=== PATIENT | male | born 1945 | race Caucasian/White ===

== ENCOUNTER 2018-11-25 01:00 | Emergency (ER) | payer MEDICARE, OTHER ==
[~2018-11-25] VITALS: Ht 180.3 cm; Wt 117.5 kg
[~2018-11-25 01:00] MED LIST: COUMADIN10 MG PO; DILTIAZEM 24HR240 M3 PO; MULTIVITAMINS1 EAC7 PO; VITAMIN C500 M1 PO; WARFARIN SODIUM1 MG PO; ZESTRIL5 MG PO
[2018-11-25] MEDS ORDERED: CEPHALEXIN500 MG PO (02:54)
[2018-11-25] MEDS ORDERED: PYRIDIUM200 MG PO (02:54)
== END 2018-11-25 03:23 | disposition home or self-care (01) ==
LOC: ED 01:00
DX: N39.0 Urinary tract infection, site not specified (principal); I10 Essential (primary) hypertension; I48.91 Unspecified atrial fibrillation; Z87.01 Personal history of pneumonia (recurrent); Z79.899 Other long term (current) drug therapy
CPT/HCPCS: 81001; 87077; 87088; 87186; 99283

== ENCOUNTER 2020-07-20 17:34 | Emergency (ER) | payer MEDICARE, OTHER ==
[~2020-07-20] VITALS: Ht 180.3 cm; Wt 119.3 kg
[~2020-07-20 17:34] MED LIST changes: +CEPHALEXIN500 MG PO; +PYRIDIUM200 MG PO
[2020-07-20] MEDS ORDERED: HYDROCODON-ACE1 EA10 PO (21:22)
[2020-07-20] MEDS ORDERED: OMEPRAZOLE20 MG PO (21:22)
--- NOTE | 2020-07-21 15:10 | EKG ---
[facility] [address] [facility] [place] [address] Signed Atrial fibrillation Nonspecific T wave abnormality Abnormal ECG No previous ECGs available Confirmed by JOVANI HUFFMAN MD ([id number]) on 07/21/2020 3:10:25 PM Electronically Signed By: JOVANI HUFFMAN MD 07/21/20 1510 PATIENT NAME: CASE COBOS Electrocardiogram DATE OF : 41 PHYSICIAN: JOVANI HUFFMAN MD REPORT #: [id number] REPORT IS CONFIDENTIAL AND NOT TO BE RELEASED WITHOUT AUTHORIZATION
[2020-09-16] MEDS ORDERED: LISINOPRIL40 MG PO (10:40)
== END 2020-07-20 21:43 | disposition home or self-care (01) ==
LOC: ED 17:34
DX: K30 Functional dyspepsia (principal); I48.91 Unspecified atrial fibrillation; I10 Essential (primary) hypertension; Z79.899 Other long term (current) drug therapy; Z79.01 Long term (current) use of anticoagulants
CPT/HCPCS: 71045; 76705; 80053; 83690; 83735; 84484; 85025; 85610; 93005; 93010; 96374; 96375; 99285-25; C9113; J1170; J2405

== ENCOUNTER 2022-09-20 08:45 | Day surgery (SDC) | payer MEDICARE, OTHER ==
[2022-09-07 10:09] VITALS: BP 120/73
[~2022-09-20] VITALS: Ht 180.3 cm; Wt 120.5 kg
[~2022-09-20 08:45] MED LIST changes: -COUMADIN10 MG PO; +GLUCOSAMINE DA1 EACH PO; +HYDROCODON-ACE1 EA10 PO; +K-TAB ER20 MEQ PO; +LEVOFLOXACIN500 MG PO; +LISINOPRIL40 MG PO; +OMEPRAZOLE20 MG PO; +TAMSULOSIN HCL0.4 MG PO; +WARFARIN SODIUM10 MG PO
[2022-09-20 09:10] VITALS: BP 154/94
[2022-09-20] MEDS ORDERED: TORSEMIDE10 MG PO (09:17)
[2022-09-20] MEDS ORDERED: OXYCODONE HCL5 MG PO (12:54)
[2022-09-20] MEDS ORDERED: GABAPENTIN300 MG PO (12:55)
[2022-09-20] MEDS ORDERED: SENNA LAX8.6 MG PO (12:55)
[2022-09-20 14:03] VITALS: BP 147/78
--- NOTE | 2022-09-20 14:15 | OR ---
[facility] [address] [facility] [place] [address] Signed DATE OF OPERATION: 09/20/2022 SURGEON: Cinthya Keyes MD PREOPERATIVE DIAGNOSIS: DJD, left knee. POSTOPERATIVE DIAGNOSIS: DJD, left knee. PROCEDURE PERFORMED: Left total knee arthroplasty with Emeka. PHYSICIAN LOCUMS URGENT CARE: Breann Gillespie PA-C. ANESTHESIA: Spinal. BLOOD LOSS: 200 mL. TOURNIQUET TIME: Zero. IMPLANTS: [place] Triathlon size 8 femur, 7 tibia, 9 mm polyethylene and 35 mm patella. BRIEF HISTORY: Case is a 76-year-old male with pain in his knee. He had significant arthritis. Nonoperative treatment was then successful and risks and benefits of operative treatment were discussed with him and he elected to proceed. DESCRIPTION OF PROCEDURE: Once consent was obtained, he was taken to the operating room. After adequate anesthesia, he was placed on the operating room table. All downside pressure points were well padded and hip bump was placed. The leg was prepped and draped in a standard sterile fashion. It was noted he had about a 15 degree flexion contracture preoperatively. The knee was then approached through a standard anterior midline incision. We did not place the tourniquet up. The midvastus arthrotomy was performed Electronically Signed By: CINTHYA KEYES MD 09/20/22 1415 PATIENT NAME: CASE COBOS OPERATIVE REPORT DATE OF : 41 REPORT #: [id number] PHYSICIAN: CINTHYA KEYES MD PCP: AMA BUSTILLO MD REPORT IS CONFIDENTIAL AND NOT TO BE RELEASED WITHOUT AUTHORIZATION [facility] [address] [place], [place] [address] Signed and the MCL was elevated as a sleeve around to the posteromedial corner. The infrapatellar fat pad was excised. Anterior horns of the menisci were incised. The ACL was released and the PCL was found to be intact. The navigation computer arrays were placed in the medial femoral condyle and proximal tibia. The leg was then registered with the computer as was the fine anatomic points of the knee. The varus and valgus testing showed minimal ligamentous balancing. We adjusted this slightly. Once this was completed, the 4 straight cuts and 2 angle cuts were made with care taken to protect the patellar tendon and MCL. The bony remnants were removed as were any osteophytes. The posterior osteophytes were removed off the femur and posterior release was performed. The trials were then positioned. The knee went from 0 to about 130 degrees of flexion with good stability. The patella was noted to track well, but did want to sublux a little laterally. The patella was cut sized and drilled for a 35 mm patella. The distal femur was drilled and the proximal tibia was finished using the keel punch and drill. His bone quality was good, so we elected to go with a non-cemented prosthesis. The trials were removed. The tibial component was impacted until it was flushed. The polyethylene was snapped into position, the femur was impacted. The knee was extended and axially loaded and the patella was clamped into position. The clamp was removed. Again, there was a slight hint of a subluxation, so we did a lateral release which centered the patella quite nicely. The knee was then copiously irrigated with Surgiphor followed by normal saline. The periarticular soft tissues were injected with 100 mL of ropivacaine and Toradol mixture. The On-Q pain pump was percutaneously placed into the adductor canal from the suprapatellar pouch. The arthrotomy was closed using combination of #2 FiberWire and #2 Stratafix, subcutaneous tissue with 0 Stratafix and the skin with alli. The wound was dressed with Aquacel Ag dressing, ABD, and Leonardo wrap. He tolerated the procedure well. All sponge, needle, and instrument counts were correct. Cinthya Keyes MD BA/MODL /[id number] Electronically Signed By: CINTHYA KEYES MD 09/20/22 1415 PATIENT NAME: CASE COBOS OPERATIVE REPORT DATE OF : 41 REPORT #: [id number] PHYSICIAN: CINTHYA KEYES MD PCP: AMA BUSTILLO MD REPORT IS CONFIDENTIAL AND NOT TO BE RELEASED WITHOUT AUTHORIZATION [facility] [address] [place] [id number] Signed Copies: ~ Electronically Signed By: CINTHYA KEYES MD 09/20/22 1415 PATIENT NAME: PAPITOCASE FIGUEROA OPERATIVE REPORT DATE OF : 41 REPORT #: [id number] PHYSICIAN: CINTHYA KEYES MD PCP: AMA BUSTILLO MD REPORT IS CONFIDENTIAL AND NOT TO BE RELEASED WITHOUT AUTHORIZATION
--- NOTE | 2022-09-20 14:21 | NUR ---
1350- PT ARRIVES FROM PACU ALERT AND ORIENTED. PT REPORTS PAIN A 6/10, DENIES NAUSEA. PT PROVIDED PUDDING, CRACKERS, AND WATER PER HIS REQUEST. ON Q PUMP INFUSING AT 6 ML/ HR. CRYOCUFF IN PLACE WITH BARRIER. BED IN THE LOWEST POSITION, BED RAILS UP X2, CALL LIGHT PROVIDED, AND PT'S AT THE BEDSIDE. 1421- LUNCH TRAY ORDERED.
--- NOTE | 2022-09-20 14:29 | NUR ---
09/20/22 1429 Monique Edwards 1250 PT ARRIVED IN PACU AWAKE AND MOVING AROUND IN BED. CRYO CUFF PLACED TO L KNEE. 1300 REPOSITIONED PT IN BED. 1308 C/O L KNEE PAIN 09/20. FENTANYL 50MCG GIVEN IVP. 1316 NO CHANGE IN PAIN LEVEL. FENTANYL 50MCG GIVEN IVP. 1330 PT SIPPING ON WATER AND REQUESTING TO SEE HIS . 1340 TO DS. REPORT GIVEN TO RN. AT BEDSIDE.
--- NOTE | 2022-09-20 14:38 | NUR ---
PT SITTING UP IN BED EATING A SANDWICH AND SOUP. PT PROVIDED MORE ICE WATER. TOLERATING WELL. PT ABLE TO URINATE 75 ML OF CONCENTRATED URINE. PT STATES AFTER HE EATS HE THINKS HE WILL BE READY TO WORK WITH PHYSICAL THERAPY.
[2022-09-20 15:04] VITALS: BP 137/84
--- NOTE | 2022-09-20 15:07 | NUR ---
PT ATE HIS ENTIRE LUNCH. PT TAUGHT HOW TO USE HIS INCENTIVE SPIROMETER. PT ABLE TO REACH 1500 A COUPLE OF TIMES. PT REPORTS HIS PAIN IS TOLERABLE RATING IT A 3/10, DENIES NAUSEA. PT STATES HE IS READY TO WORK WITH PHYSICAL THERAPY.
--- NOTE | 2022-09-20 15:23 | NUR ---
PHYSICAL THERAPY IN THE ROOM.
[2022-09-20 16:26] VITALS: BP 135/69
--- NOTE | 2022-09-20 16:31 | NUR ---
1555- PT RETURED FROM PHYSICAL THERAPY AND HAS BLEEDING ON THE ISABELLA WRAP. UNDER THE DRESSING THE AQUACEL IS COMPLETELY SATURATED AND THE ABD PADS HAVE A MODERATE AMOUNT OF DRAINAGE ON THEM. DR. CANALES CALLED AND ORDERED TO HAVE HIS DRESSING CHANGED. PT DID PASS PHYSICAL THERAPY. 161- 12 INCH AQUACEL, 3 ABD PADS, AND 6 INCH ISABELLA WRAP APPLIED PER DR. CANALES TELEPHONE ORDER. PT REPORTS HIS LEFT KNEE PAIN IS A 2/10, DENIES ANY DIZZINESS OR NAUSEA. PT STATES, "I FEEL GREAT. WHEN DO I GET TO GO HOME?" PT UPDATED ON PLAN OF CARE.
[2022-09-20 17:01] VITALS: BP 123/87
--- NOTE | 2022-09-20 17:08 | NUR ---
ON- Q PUMP TURNED DOWN TO 4 ML/HR PER DR. CANALES TELEPHONE ORDER. PT AND PT'S NOTIFIED THAT THE PT IS TO START WARFARIN AGAIN TOMORROW. BOTH PARTIES STATE UNDERSTANDING.
--- NOTE | 2022-09-20 17:15 | NUR ---
PT DRESSING HIMSELF WITH HIS AT THE BEDSIDE. PT DENIES ANY DIZZINESS OR NAUSEA.
--- NOTE | 2022-09-20 17:37 | NUR ---
1722- PT DRESSED HIMSELF. TOLERATED WELL. DC INSTRUCTIONS PROVIDED TO PT AND PT'S . ALL QUESTIONS ANSWERED. CRYOCUFF PACKED UP AND INSTRUCTED ON HOW TO FILL AND USE. BOTH PARTIES STATE UNDERSTANDING. PT'S DRESSING HAS MINIMAL DRAINAGE. EDUCATED TO CALL DR. CANALES AFTER HOURS NUMBER IF THE DRESSING BECOMES SATURATED AGAIN. PT ABLE TO AMBULATE WITH WALKER TO THE WHEELCHAIR AND IS TAKEN OUT TO THE CAR TO MEET HIS .
== END 2022-09-20 17:25 | disposition home or self-care (01) ==
LOC: DS 08:45
PROVIDERS: ATTEND Specialist
PROC: 3E0T3BZ Introduction of Anesthetic Agent into Peripheral Nerves and Plexi, Percutaneous Approach (ICD-10-PCS; 2022-09-20)
PROC: 0SRD0JZ Replacement of Left Knee Joint with Synthetic Substitute, Open Approach (ICD-10-PCS; principal; 2022-09-20 11:45)
DX: M17.12 Unilateral primary osteoarthritis, left knee (principal); I10 Essential (primary) hypertension
CPT/HCPCS: 01400; 36415; 64447; 64450; 76942; 85610; 97161; C1776; J0690; J1100; J2001; J2250; J2795; J3010; J7121

== ENCOUNTER 2024-10-04 08:26 | Inpatient (IN) | payer MEDICARE, OTHER ==
[~2024-10-04] VITALS: Ht 180.3 cm; Wt 124.6 kg
[~2024-10-04 08:26] MED LIST changes: +GABAPENTIN300 MG PO; +GABAPENTIN400 MG PO; +METHYLPREDNISOLO4 M1 PO; +OXYCODONE HCL5 MG PO; +POTASSIUM CHLO10 MEQ PO; +SENNA LAX8.6 MG PO; +TORSEMIDE10 MG PO
[2024-10-04 08:49] LABS: BASOPHILS 0.2 % (0.2-1.2); EOSINOPHILS 0 % (0.8-7.0); LYMPHOCYTES 13.2 % (21.8-53.1); MCH 30.6 PG (25.7-32.2); MCHC 34.1 g/dL (32.3-36.5); MCV 89.8 fL (79.0-92.2); MONOCYTES 13.0 % (5.3-12.2); NEUTROPHILS 73.0 % (34.0-67.9); RBC 5.09 M/uL (4.63-6.08)
[2024-10-04 09:16] LABS: ALT (SGPT) 45.0 U/L (14-59); AST (SGOT) 37.0 U/L (15-37); GLOMERULAR FILTRATION RATE,EST 60.0 mL/min (>60); PROTEIN, TOTAL 6.9 g/dL (6.4-8.2); UREA NITROGEN 15.0 mg/dL (7-18)
[2024-10-04 11:23] LABS: BLOOD/HGB, URINE SMALL (Negative); KETONE, URINE NEGATIVE (Negative); LEUK ESTERASE, URINE NEGATIVE (negative); NITRITE, URINE NEGATIVE (negative)
[2024-10-04 11:30] LABS: BACTERIA, URINE NONE SEEN /hpf (negative); CASTS, URINE NONE SEEN \\lpf; CRYSTALS, URINE NONE SEEN (0-1+); EPITHELIAL CELLS, URINE SQUAMOUS 1+ /lpf (0-1+)
[2024-10-04 11:31] LABS: REFLEX CULTURE, URINE No (No)
[2024-10-04] MEDS ORDERED: HYDROmorphone HCL 1 MG/ML SYR IV PRN (14:00)
[2024-10-04] MEDS ORDERED: ACETAMINOPHEN 325 MG TAB PO PRN (14:00)
[2024-10-04] MEDS ORDERED: ACETAMINOPHEN 650 MG SUPP PR PRN (14:00)
[2024-10-04] MEDS ORDERED: PROCHLORPERAZINE EDISYLATE 10 MG/2 ML VIAL IV PRN (14:00)
[2024-10-04] MEDS ORDERED: DEXTROSE 5% - LACTATED RINGERS 1,000 ML IV SCH (14:00)
[2024-10-04] MEDS ORDERED: TAMSULOSIN HCL 0.4 MG CAP PO SCH (14:04)
[2024-10-04] MEDS ORDERED: PANTOPRAZOLE SODIUM 40 MG/10 ML VIAL IV SCH (14:10)
--- NOTE | 2024-10-04 14:26 | NUR ---
UR CLINICAL REVIEW: 2MN VERSAVÍCTORS, MEETS INPT FOR GALLBLADDER OR BILE DUCT OBSTRUCTION IV ANTIBIOTICS, IV FLUIDS, NPO, HOLD COUMADIN AND MONITOR INR FOR SURGICAL PROCEDURE TO BE DONE. MEDICARE INPT 10/04/24 @ 1413 ORDER MATCHES REG NO AUTH REQUIRED PER MEDICARE RULES. DC TO HOME AFTER SURGICAL PROCEDURE AND MEDCIALLY STABLE.
[2024-10-04] MEDS ORDERED: GABAPENTIN 400 MG CAP PO SCH (15:00)
[2024-10-04 15:03] VITALS: BP 136/61
--- NOTE | 2024-10-04 15:05 | NUR ---
PT TO MEDSURG VIA STRETCHER WITH ED RN. PT TO MED SURG BED VIA SBA, STEADY ON FEET. VSS, PROVIDED WITH WARM BLANKETS. ORIENTED PT TO ROOM AND CALL LIGHT. AT BEDSIDE
--- NOTE | 2024-10-04 15:50 | NUR ---
THIS RN CALLS DR. ANTONIO REGARDING PT NOT HAVING COAGULATION PANEL COMPLETED PLAN IS TO DO PROCEDURE ONCE INR IS WNL. STATES THAT COAGULATION PANEL ORDER WILL NOT BE NECESSARY FOR "ABOUT TWO MORE DAYS" COUMADIN WAS RECENTLY TAKEN PER PT. THIS RN VERIFIES THAT PT IS TO BE NPO UNTIL PROCEDURE, STATES TO KEEP PT NPO UNTIL PROCEDURE. NO NEW ORDERS AT THIS TIME.
--- NOTE | 2024-10-04 15:54 | NUR ---
PT RESTING IN BED, WATCHING TV. IV ABX STARTED AND CONTINUING. UPDATED ON PLAN OF CARE FOR TODAY. DENIES FURTHER NEEDS, CALL LIGHT IN REACH
--- NOTE | 2024-10-04 16:08 | NUR ---
PATIENT IN BED AT THIS TIME. UNDERGROUND ELECTRICIAN CHARTED HOURLY ROUNDS. NO FURTHER NEEDS, CALL LIGHT IN REACH.
--- NOTE | 2024-10-04 17:10 | NUR ---
PT RESTING IN BED WITH EYES CLOSED, AWAKENS TO VERBAL STIMULI. IVF CONTINUING PER ORDER. UPDATED ON PLAN OF CARE, CALL LIGHT IN REACH
--- NOTE | 2024-10-04 18:01 | NUR ---
PT RESTING IN BED, DENIES NEEDS. IVF CONTINUING PER ORDER. CALL LIGHT IN REACH
--- NOTE | 2024-10-04 18:11 | NUR ---
PATIENT IN BED AT THIS TIME. YARA VALLE AND YARA ENRIQUEZ CHARTED PATIENTS VITALS AND I&O'S. YARA ASSISTED PATIENT TO BATHROOM BACK TO BED. CALL LIGHT WITHIN REACH, NO FURTHER NEEDS AT THIS TIME.
[2024-10-04 18:15] VITALS: BP 151/68
[2024-10-04 18:22] VITALS: BP 151/68
--- NOTE | 2024-10-04 18:24 | NUR ---
MEWS SCORE OF 3, DR NOT NOTIFIED DUE TO THIS BEING PT'S BASELINE WITH HX OF TACHYCARDIA.
--- NOTE | 2024-10-04 19:05 | NUR ---
REPORT RECEIVED FROM MARISOL GUZMÁN. pt RESTING IN THE BED. BOARD UPDATED. pt DENIES ANY OTHER NEEDS AT THIS TIME. CALL LIGHT WITHIN REACH.
[2024-10-04 20:20] VITALS: BP 125/48
--- NOTE | 2024-10-04 20:23 | NUR ---
PACKING CHECKER OBTAINED VITALS AND OUTPUT. PT STATES NO NEEDS AT THIS TIME. CALL LIGHT WITHIN REACH. RN NOTIFED OF 100.2 TEMP.
--- NOTE | 2024-10-04 20:39 | EKG ---
[facility] [address] [place] [address] Signed Atrial fibrillation Abnormal ECG When compared with ECG of 20-JUL-2020 17:40, No significant change was found Confirmed by Mervat Bejarano MD () on 10/04/2024 8:38:48 PM Electronically Signed By: MERVAT BEJARANO MD 10/04/242038 PATIENT NAME: CASE COBOS HENRY Electrocardiogram DATE OF : 41 PHYSICIAN: MERVAT BEJARANO MD REPORT #: [id number] REPORT IS CONFIDENTIAL AND NOT TO BE RELEASED WITHOUT AUTHORIZATION
--- NOTE | 2024-10-04 20:40 | NUR ---
ASSESSMENT AND VITAL SIGNS DONE. pt RESTING IN THE BED WITH CPAP ON. pt DENIES PAIN AT THIS TIME. pt STATES THE PAIN COMES AND GOES. pt HAD A LOW GRADE FEVER AT THIS TIME. PRN AND SCHEDULED MEDS ADMINISTERED. pt DENIES ANY OTHER NEEDS AT THIS TIME. CALL LIGHT WITHIN REACH. CPOX PLACED ON pt.
[2024-10-04 20:52] VITALS: BP 125/48
--- NOTE | 2024-10-04 21:11 | NUR ---
CALL LIGHT ANSWERED. PT NEEDED TO USE BATHROOM. PROPERTY DAMAGE CLAIMS ADJUSTOR SBA TO BATHROOM. PT VOIDED AND ASSISTED BACK TO BED. PT BACK ON CPAP. NO FURTHER NEEDS STATED AT THIS TIME. CALL LIGHT WITHIN REACH.
--- NOTE | 2024-10-04 22:59 | NUR ---
pt RESTING IN THE BED WITH EYES CLOSED. RR EVEN AND UNLABORED. pt SATTING AT 92 ON 2LNC. pt REFUSED CPAP FOR THE NIGHT. CALL LIGHT WITHIN REACH.
[2024-10-05] VITALS (12 sets, daily range): BP systolic 98–138; BP diastolic 52–82
--- NOTE | 2024-10-05 00:37 | NUR ---
pt RESTING IN THE BED WITH EYES CLOSED. RR EVEN AND UNLABORED. CALL LIGHT WITHIN REACH.
--- NOTE | 2024-10-05 01:06 | NUR ---
CALL LIGHT ANSWERED. PT GIVEN WARM BLANKET. COAL INSPECTOR OBTAINED VITALS AND OUTPUT. PT STATES NO FUTHER NEEDS AT THIS TIME. CALL LIGHT WITHIN REACH.
--- NOTE | 2024-10-05 03:17 | NUR ---
pt RESTING IN THE BED WITH EYES CLOSED. RR EVEN AND UNLABORED. CALL LIGHT WITHIN REACH. CALL LIGHT WITHIN REACH.
--- NOTE | 2024-10-05 04:06 | NUR ---
pt RESTING IN THE BED WITH EYES CLOSED. RR EVEN AND UNLABORED. pt SATTING AT 93% ON 2LNC. CALL LIGHT WITHIN REACH.
--- NOTE | 2024-10-05 04:55 | NUR ---
CALL LIGHT ANSWERED. PT NEEDED TO USE BATHROOM. FEATHER MIXER SBA PT TO BATHROOM. PT VOIDED AND ASSISTED BACK TO BED. PT COMPLAINING OF PAIN. RN NOTIFED. PT STATES NO FURTHER NEEDS AT THIS TIME. CALL LIGHT WITHIN REACH.
--- NOTE | 2024-10-05 04:59 | NUR ---
pt C/O 05/21 PAIN. pt STATES THIS IS A TOLERABLE LEVEL AND DENIES ANY PRN PAIN MEDS AT THIS TIME. pt EDUCATED ON THE PLAN FOR HIS STAY AT THIS TIME. pt DENIES ANY OTHER NEEDS AT THIS TIME. CALL LIGHT WITHIN REACH.
--- NOTE | 2024-10-05 05:52 | NUR ---
pt RESTING IN THE BED. VITAL SIGNS DONE. pt DENIES ANY NEEDS AT THIS TIME. CALL LIGHT WITHIN REACH.
[2024-10-05 06:37] LABS: BASOPHILS 0.3 % (0.2-1.2); EOSINOPHILS 0.1 % (0.8-7.0); LYMPHOCYTES 10.6 % (21.8-53.1); MCH 30.5 PG (25.7-32.2); MCHC 34.1 g/dL (32.3-36.5); MCV 89.3 fL (79.0-92.2); MONOCYTES 11.7 % (5.3-12.2); NEUTROPHILS 76.7 % (34.0-67.9); RBC 4.59 M/uL (4.63-6.08)
[2024-10-05 06:56] LABS: GLOMERULAR FILTRATION RATE,EST 69.0 mL/min (>60); PHOSPHORUS, INORGANIC 1.5 mg/dL (2.5-4.9); UREA NITROGEN 22.0 mg/dL (7-18)
[2024-10-05 06:57] LABS: ALT (SGPT) 26.0 U/L (14-59); AST (SGOT) 23.0 U/L (15-37); PROTEIN, TOTAL 6.1 g/dL (6.4-8.2)
[2024-10-05] MEDS ORDERED: ALPRAZolam 0.25 MG TAB.RAPDIS PO SCH (07:00)
--- NOTE | 2024-10-05 07:10 | NUR ---
RECIEVED REPORT FROM RAMIREZ FLORES.
--- NOTE | 2024-10-05 07:27 | NUR ---
PT AWAKE IN BED. PT UP TO RESTROOM WITH SBA, BACK TO BED AFTER. PT STATES ABDOMINAL PAIN IS "A LITTLE MORE THAN YESTERDAY" AND RATES PAIN 3/10, PT DENIES PAIN MEDICATION AT THIS TIME. PT DENIES NAUSEA OR SOB AT THIS TIME. PT DENIES ANY CURRENT NEEDS, CALL LIGHT WITHIN REACH.
--- NOTE | 2024-10-05 08:43 | NUR ---
PATIENT IS IN HIS BED RESTING AT THIS TIME, WAITER/WAITRESS COUNTER CHARTED VITALS AND I&O'S, CALL LIGHT WITH IN REACH AND NOTHING ELSE NEEDED AT THIS TIME.
[2024-10-05] MEDS ORDERED: PANTOPRAZOLE SODIUM 40 MG TABEC PO SCH (09:00)
--- NOTE | 2024-10-05 09:47 | NUR ---
MED REC COMPLETE
--- NOTE | 2024-10-05 10:36 | NUR ---
Spoke with Eleno. He lives with his , she is in remission for breast ca. He states their home has 15 steps, he placed grab bars throughout the house and their steps in the home have a stair lift. He states they exercise daily and are in good shape. They do not use DME. He has a CPAP. They do not have any financial or safety worries. They have a daughter that lives in [place] and helps them if needed. He and grocery shop together. If he is unable to drive or get around well after surgery, he would consider hiring a cg. Brochures for [employer] and [employer] given.
--- NOTE | 2024-10-05 12:11 | NUR ---
VISITED DURING SPIRITUAL CARE ROUNDS. PT SUPPORTED BY IN ROOM. BOTH IN OVERALL GOOD SPIRITS, ALTHOUGH CONCERNED THAT IF TRANSFER IS REQUIRED DESTINATION MIGHT BE [place]. BOTH STATE ANYWHERE EXCEPT [place] WOULD BE BETTER. SHARED VERY DIFFICULT EXPERIENCES IN [place] DURING UNREST SURROUNDING COVID, STATED HAD PTSD WITH FLASHBACKS AND WOULD NOT BE ABLE TO NAVIGATE [place] TO JOIN . AFTER VISIT, VENEER SAWYER YOLI GARCIA RELAYED CONCERNS AND REQUEST FOR TRANSFER TO ANYWHERE EXCEPT [place] IF AT ALL POSSIBLE TO RN VICENTE WHO INDICATED SHE WOULD MAKE A NOTE. VENEER SAWYER INTERVENTIONS: PROVIDE SUPPORTIVE PRESENCE, HOSPITALITY, PRAYER, FACILITATE INTERACTION WITH THERAPY ANIMAL, ADVOCATE FOR PT. PT AND EXPRESSED GRATITUDE, ONGOING HOPE.
--- NOTE | 2024-10-05 12:41 | NUR ---
DR. ANTONIO TO NURSES STATION TO DISCUSS POC WITH THIS RN. STATES PT CAN HAVE WATER AND ICE CHIPS AT THIS TIME.
--- NOTE | 2024-10-05 12:50 | NUR ---
PT UP TO RESTROOM INDEPENDENTLY. GOWN GIVEN TO WEAR ON BACK, PT OUT TO HALLWAY WALKING WITH . PT STATES NO FURTHER NEEDS AT THIS TIME.
--- NOTE | 2024-10-05 15:39 | NUR ---
PATIENT IS IN BED RESTING AT THE MOMENT, ASSOCIATE FINANCIAL PLANNER OFFERED A SHOWER OR BED BATH. PATIENT REFUSED AND STATED THAT HE WOULD LIKE TO TAKE ONE IN THE MORNING. I WILL TRY AND OFFER AGAIN LATER. CALL LIGHT WITH IN REACH AND NOTHING ELSE NEEDED AT THIS TIME.
--- NOTE | 2024-10-05 17:51 | NUR ---
PT LYING IN BED, STATES NO CURRENT NEEDS, CALL LIGHT WITHIN REACH.
--- NOTE | 2024-10-05 18:04 | NUR ---
PATIENT IS IN BED RESTING AT THIS TIME, ADJUNCT SPANISH INSTRUCTOR CHARTED VITALS AND I&O'S, CALL LIGHT WITH IN REACH AND NOTHING ELSE NEEDED AT THIS TIME.
--- NOTE | 2024-10-05 19:10 | NUR ---
REPORT RECEIVED FROM VICENTE GUZMÁN. pt RESTING IN THE BED. CPAP ON. WATER REFRESHED. BOARD UPDATED. pt DENIES ANY OTHER NEEDS AT THIS TIME. CALL LIGHT WITHIN REACH.
--- NOTE | 2024-10-05 19:55 | NUR ---
CASE IS CURRENTLY ON HIS HOME AUTO CPAP UNIT 17-18 WITH A FFM. HE TOLERATES HIS HOME UNIT WELL.
--- NOTE | 2024-10-05 20:50 | NUR ---
ASSESSMENT AND VITAL SIGNS DONE. BOWEL TONES ACTIVE. pt WEARING CPAP AT THIS TIME. NEW BAG OF IVF INFUSING AT THIS TIME. SCHEDULED MEDS AT THIS TIME. pt STATES PAIN IS TOLERABLE AT THIS TIME. WATER REFRESHED. pt DENIES ANY OTHER NEEDS ANY OTHER NEEDS AT THIS TIME. CALL LIGHT WITHIN REACH.
--- NOTE | 2024-10-05 22:30 | NUR ---
pt CALLED TO USE THE BR. pt SBA. pt BACK TO THE BED. pt DENIES ANY OTHER NEEDS AT THIS TIME. CALL LIGHT WITHIN REACH.
[2024-10-06] VITALS (9 sets, daily range): BP systolic 110–126; BP diastolic 55–63
--- NOTE | 2024-10-06 00:11 | NUR ---
pt RESTING IN THE BED WITH EYES CLOSED. RR EVEN AND UNLABORED. CALL LIGHT WITHIN REACH.
--- NOTE | 2024-10-06 01:57 | NUR ---
pt RESTING IN THE BED WITH EYES CLOSED. RR EVEN AND UNLABORED. CALL LIGHT WITHIN REACH.
--- NOTE | 2024-10-06 03:03 | NUR ---
pt RESTING UP TO THE BR. SBA FOR LINE/TUBE MANAGEMENT. pt BACK TO BED. pt DENIES ANY OTHER NEEDS AT THIS TIME. CALL LIGHT WITHIN REACH. CPOX ON.
--- NOTE | 2024-10-06 04:16 | NUR ---
pt RESTING IN THE BED WITH EYES CLOSED. RR EVEN AND UNLABORED. pt SATTING AT 90%. CPAP ON. CALL LIGHT WITHIN REACH.
--- NOTE | 2024-10-06 06:42 | NUR ---
SCHEDULED MEDS ADMINISTERED. pt UP TO THE BR. pt DENIES ANY OTHER NEEDS AT THIS TIME. CPOX ON. CALL LIGHT WITHIN REACH.
[2024-10-06 06:53] LABS: BASOPHILS 0.2 % (0.2-1.2); EOSINOPHILS 0.3 % (0.8-7.0); LYMPHOCYTES 14.1 % (21.8-53.1); MCH 30.5 PG (25.7-32.2); MCHC 33.7 g/dL (32.3-36.5); MCV 90.5 fL (79.0-92.2); MONOCYTES 10.6 % (5.3-12.2); NEUTROPHILS 73.8 % (34.0-67.9); RBC 4.52 M/uL (4.63-6.08)
[2024-10-06 07:01] LABS: INR 1.58 (0.80-1.30); PROTIME 17.9 Sec (11.2-14.2)
[2024-10-06 07:06] LABS: ALT (SGPT) 28.0 U/L (14-59); AST (SGOT) 33.0 U/L (15-37); PROTEIN, TOTAL 6.1 g/dL (6.4-8.2)
--- NOTE | 2024-10-06 07:10 | NUR ---
RECIEVED REPORT FROM RAMIREZ FLORES. PT RESTING IN BED WITH EYES CLOSED, BREATHING EVEN AND UNLABORED, CPOX IN PLACE, O2 SATURATION AT >90%. CALL LIGHT WITHIN REACH.
--- NOTE | 2024-10-06 11:15 | NUR ---
PT AMBULATING HALLWAY WITH , DENIES ANY CURRENT NEEDS.
--- NOTE | 2024-10-06 12:20 | NUR ---
PT AMBULATED HALLWAY WITH , RETURNED TO ROOM, STATES HE WOULD LIKE TO SHOWER. SHOWER SUPPLIES AND NEW LINENS PROVIDED, IV SALINE LOCKED AND WRAPPED FOR SHOWER. PT STATES NO FURTHER NEEDS, CALL LIGHT WITHIN REACH.
--- NOTE | 2024-10-06 12:50 | NUR ---
PT BACK TO BED AFTER SHOWER. CPOX AND IV FLUIDS RECONNECTED. PT DENIES ANY FURTHER NEEDS AT THIS TIME, CALL LIGHT WITHIN REACH.
--- NOTE | 2024-10-06 14:29 | NUR ---
PT AMBULATING HALLWAY WITH .
--- NOTE | 2024-10-06 20:24 | NUR ---
CASE IS AWAKE ON HIS HOME AUTO CPAP UNIT 17-18 WITH A FFM. CASE TOLERATES HIS HOME AUTO CPAP UNIT WITHOUT ISSUE.
--- NOTE | 2024-10-06 21:02 | NUR ---
Pt A&O x4, [place], pleasant and cooperative SBA. Up to BRP, on room air, voided light kathleen colored with pinkish hue colored urine. Back to bed, Denies SOB and none noted but pulse noted to be elevated to 131 on return from BRP. decreased down to 112 after less than a minute and then 99. resp 18-20, no changes. HOB elevated, using home CPAP on returns, bedside CPOX in place. Cooperative with vitals and assessments. denies c/o pain. lungs dim at bases but clear, Irregular Heart rhythm and tachy with exertion, denies CP hx afib. abd large firm, LUANNE, LBM today. aware of NPO status after midnight. IVF infusing w/o problems LA.
--- NOTE | 2024-10-06 22:38 | NUR ---
USING HOME CPAP, HOB ELEVATED, BEDSIDE CPOX. NO C/O PAIN OR DISTRESS
[2024-10-07] VITALS (10 sets, daily range): BP systolic 105–127; BP diastolic 60–76
--- NOTE | 2024-10-07 00:25 | NUR ---
PATIENT WAS ASSISTED SBA TO THE BATHROOM. PATIENT IS NOW IN BED. CALL LIGHT IS WITHIN REACH AND NO FURTHER NEEDS AT THIS TIME.
--- NOTE | 2024-10-07 02:46 | NUR ---
RESTING, EYES CLOSED, USING HOME CPAP, NO S/SX DISTRESS, BEDSIDE CPOX IN PLACE. NPO
--- NOTE | 2024-10-07 04:04 | NUR ---
AWAKE, UP TO BRP, IVF INFUSING W/O PROBLEMS, NO C/O PAIN. BEDSIDE CPOX IN PLACE. NPO
--- NOTE | 2024-10-07 04:09 | NUR ---
PATIENT IS LAYING IN BED. PATIENT WAS ASSISTED SBA TO THE BATHROOM. PATIENTS CALL LIGHT IS WITHIN REACH AND NO FURTHER NEEDS AT THIS TIME.
[2024-10-07 05:33] LABS: INR 1.41 (0.80-1.30); PROTIME 16.3 Sec (11.2-14.2)
--- NOTE | 2024-10-07 05:38 | NUR ---
PATIENT IS LAYING IN BED. PATIENTS VITAL SIGNS AND I&OS WERE DONE. PATIENTS CALL LIGHT IS WITHIN REACH AND NO FURTHER NEEDS AT THIS TIME.
--- NOTE | 2024-10-07 06:42 | NUR ---
awake, on room air, sitting edge of bed visiting with family, no c/o sob or pain. IVF infusing w/o problems. NPO took 0700 meds with 30cc fluids, tolerated well
--- NOTE | 2024-10-07 07:18 | NUR ---
RECIEVED REPORT FROM RAMIREZ GARCIA. PT RESTING IN BED WITH EYES CLOSED, BREATHING EVEN AND UNLABORED. CALL LIGHT WITHIN REACH.
--- NOTE | 2024-10-07 08:30 | NUR ---
PT SITTING UP IN BED, ONE VISITOR IN ROOM. PT REPORTS HE IS FEELING OK, ASKED ABOUT TAKING A WALK - I SAID I WOULD CHECK ON DAILY PLAN. PT NPO SINCE MIDNIGHT. CALL LIGHT WITHIN REACH, PT REPORTS NOT NEEDING ANYTHING AT THIS TIME, WATCHING TV.
--- NOTE | 2024-10-07 08:34 | NUR ---
PT COMPLETED AM SELF-CARE - PT NPO, WAITING TO SPEAK TO DR REGARDING SURGERY. ONE VISITOR IN ROOM. WILL CHECK WITH DR REGARDING WALKING.
--- NOTE | 2024-10-07 10:36 | NUR ---
PT AMBULATING HALLWAY WITH HIS , STATES NO CURRENT NEEDS.
--- NOTE | 2024-10-07 11:18 | NUR ---
PT UP TO SHOWER. IN ROOM. CALL LIGHT WITHIN REACH.
--- NOTE | 2024-10-07 12:07 | NUR ---
PT AMBULATED TO THE SHOWER AND BACK. TOOK A LONG SHOWER, LINENS CHANGED WHILE PT IN SHOWER. ROOM CLEANED WHILE PT WAS IN SHOWER, THEN BATHROOM CLEANED AFTER PT RETURNED TO BED. GOWN CHANGED AND OXIMETER PLACED ON FINGER, NEW. GOT PT FRESH ICE WATER. PT HAS ONE VISITOR AND CURRENTLY EATING LUNCH, NOTY NPO, SURGERY CHANGED TO TOMORROW, PER CALL LIGHT RETURNED TO WITHIN REACH, PT REPORTED NEEDING NOTHING ELSE AT THIS TIME.
--- NOTE | 2024-10-07 16:45 | NUR ---
PT AMBULATING HALLWAY WITH AGRONOMY MANAGER, DENIES ANY CURRENT NEEDS.
--- NOTE | 2024-10-07 18:04 | NUR ---
LEFT A/C IV IS LEAKING AND REMOVED WITH CATHETER INTACT. NEW #20 TO LEFT FOREARM, IVF RESUMED. NO OTHER NEEDS AT THIS TIME.
--- NOTE | 2024-10-07 18:45 | NUR ---
PT RESTING IN BED WITH C-PAP ON. PT HAS ICE WATER NEXT TO BED AND IS REQUESTING TO TAKE A WALK AFTER I FINISH WITH VITALS. PT NEEDS NOTHING ELSE AT THIS TIME. CALL LIGHT WITHIN REACH.
--- NOTE | 2024-10-07 18:47 | NUR ---
PT AND I TOOK TWO LAPS TWICE TODAY AROUND [facility] WITH PT. PT WAS A LITTLE WINDED, BUT OVERALL DID WELL WHILE AMBULATING.
--- NOTE | 2024-10-07 20:13 | NUR ---
CASE PLACED HIS FFM ON FROM HIS HOME AUTO CPAP 17-18 FOR BED. RT PROVIDED A BOTTLE OF STERILE WATER FOR HIS HOME CPAP.
--- NOTE | 2024-10-07 20:34 | NUR ---
IN BED, HOB ELEVATED, USING HOME CPAP, CPOX ON AT BEDSIDE. LUNGS CLEAR BILAT, ABD LARGE SLIGHTLY FIRM, LUANNE, LBM TODAY. NO C/O ABD PAIN OR N/V. TRACE EDEMA TO LE, LEVEATED. TURNS AND REPOSITIONS SELF AT HS, AWAARE OF NPO STATUS AFTER MIDNIGHT. IVF INFUSING LAC, BRUISING OVER PARAM HEALING
[2024-10-07] MEDS ORDERED: POTASSIUM PHOSPHATE 30 MMOL in DEXTROSE 5% 500 ML IV ONE (21:15)
--- NOTE | 2024-10-07 21:55 | NUR ---
DR ANTONIO CALLED VIA PHONE - CLARIFICATION OF POTASSIUM PHOSPHATE ORDER. LAST LABS WERE DRAWN 10/05 . DRAW POTASIUM LEVELS NOW IF BELOW 4 MEQ GIVE PREVIOUSLY ORDERED PHOSPHATE ORDER. GET CHEMISTRY AND K DRAWN AGAIN IN AM.
[2024-10-07 22:34] LABS: ALT (SGPT) 65.0 U/L (14-59); AST (SGOT) 91.0 U/L (15-37); GLOMERULAR FILTRATION RATE,EST 87.0 mL/min (>60); PROTEIN, TOTAL 5.9 g/dL (6.4-8.2); UREA NITROGEN 15.0 mg/dL (7-18)
--- NOTE | 2024-10-07 23:02 | NUR ---
POTASSIUM PHOSPHATE 30 MOLS/510CC STARTED, MED ED DONE WITH PT, NO QUESTIONS ASKED. RESTING, AWAKENS EASILY, USING HOME CPAP, CPOX ON AT BEDSIDE, TURNS AND REPOSITIONS SELF IN BED
--- NOTE | 2024-10-08 01:53 | NUR ---
RESTING, EYES CLOSED, HOME CPAP IN PLACE. CPOX IN PLACE, IVF INFUSING W/O PROBLEMS
--- NOTE | 2024-10-08 03:51 | NUR ---
resting, hob elevated, using home CPAP, no s/sx distress. cpox at bedside
[2024-10-08 05:33] LABS: INR 1.37 (0.80-1.30); PROTIME 16.0 Sec (11.2-14.2)
[2024-10-08 05:45] LABS: ALT (SGPT) 62.0 U/L (14-59); AST (SGOT) 71.0 U/L (15-37); GLOMERULAR FILTRATION RATE,EST 88.0 mL/min (>60); PROTEIN, TOTAL 5.8 g/dL (6.4-8.2); UREA NITROGEN 14.0 mg/dL (7-18)
[2024-10-08 06:15] VITALS: BP 141/68
--- NOTE | 2024-10-08 06:21 | NUR ---
AWAKENS EASILY, ON ROOM AIR WHEN UP, CPOX AT BEDSIDE, TACHY WITH EXERTION. VOIDED AND HAD MEDIUM SOFT SIZED BM. VOIDING DARK YELLOW URINE. NPO, TOLERATING WELL, DOES OWN ORAL CARE. TACHY ON RETURN TO CHAIR FROM BATHROOM. DENIES SOB. UP IN CHAIR AT THIS TIME, INDEPENDENT/SBA. NO C/O PAIN OR N/V
--- NOTE | 2024-10-08 06:49 | NUR ---
Dr Cortes in room examining pt. Surgery consent signed. notified that pt got like approx 30cc of water with meds this am. Pt has been NPO since before midnight
--- NOTE | 2024-10-08 08:30 | NUR ---
PT SITTING UP IN CHAIR DOING CROSSWORDS. GAVE MORNING MEDS WITH SMALL SIP OF WATER. BP LOW, HELD LISINIPRL. PT UP TO RESTROOM AND THEN TO STRETCH OUT IN BED FOR A MINUTE UNTIL GETS HERE AND HE WILL SHOWER.
[2024-10-08 09:07] VITALS: BP 108/59
--- NOTE | 2024-10-08 09:15 | NUR ---
INTO SEE PATIENT. PATIENT TO HAVE SURGERY TODAY. FAMILY TO TAKE PATIENT HOME AT TIME OF DISCHARGE. NO CM NEEDS AT THIS TIME.
--- NOTE | 2024-10-08 09:32 | NUR ---
PT IN SHOWER DOING HIBICLENS WASH. IN ROOM. 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 PT DENIES CONCERNS.
--- NOTE | 2024-10-08 09:50 | NUR ---
Spoke with Eleno and his . Pt states he spoke with surgeon and will have his surgery today at 11:30. He denies needs and plans on dc as soon as possible following surgery. agrees. IM letter completed.
[2024-10-08] MEDS ORDERED: SODIUM CHLORIDE 0.9% 40 ML IV ONE (11:00)
--- NOTE | 2024-10-08 11:03 | NUR ---
PT OFF FLOOR WITH RAMIREZ WANG. WENT WITH HIM.
[2024-10-08] MEDS ORDERED: LIDOCAINE HCL 2% 5 ML SDV ONE ×2 (11:25→11:33)
[2024-10-08] MEDS ORDERED: ACETAMINOPHEN 1,000 MG/100 ML VIAL ONE (11:25)
[2024-10-08] MEDS ORDERED: DEXAMETHASONE SOD PHOS 4 MG/ML VIAL ONE (11:25)
[2024-10-08] MEDS ORDERED: ROCURONIUM BROMIDE 50 MG/5 ML SYR ONE (11:25)
[2024-10-08] MEDS ORDERED: fentaNYL citrate 100 MCG/2 ML VIAL ONE (11:25)
[2024-10-08] MEDS ORDERED: MAGNESIUM SULFATE 1 GM/2 ML VIAL ONE (11:33)
[2024-10-08] MEDS ORDERED: GLUCAGON,HUMAN RECOMBINANT 1 MG/ML VIAL ONE (11:51)
[2024-10-08] MEDS ORDERED: IBLOOD GLUCOSE TEST STRIP 1 EA TEST VI PRN (12:00)
[2024-10-08] MEDS ORDERED: fentaNYL citrate 50 MCG/ML SDV IV PRN (12:00)
[2024-10-08] MEDS ORDERED: NALOXONE HCL 0.4 MG SYR IV PRN (12:00)
[2024-10-08] MEDS ORDERED: KETOROLAC TROMETHAMINE 30 MG/ML VIAL IV PRN (12:00)
--- NOTE | 2024-10-08 13:31 | NUR ---
PT REMAINS OFF FLOOR.
[2024-10-08] MEDS ORDERED: MORPHINE SULFATE 10 MG/ML VIAL ONE (13:49)
[2024-10-08] MEDS ORDERED: LACTATED RINGER'S 1,000 ML IV ONE (13:56)
[2024-10-08] MEDS ORDERED: SUGAMMADEX SODIUM 200 MG/2 ML ML ONE (14:58)
--- NOTE | 2024-10-08 15:19 | NUR ---
[facility] REPORT NO ABILITY TO DO ERCP. [facility] REPORTS NO ABILITY TO DO ERCP.
--- NOTE | 2024-10-08 15:21 | NUR ---
[facility] REPORTS NO ABILITY TO DO ERCP
--- NOTE | 2024-10-08 15:22 | NUR ---
CALL PLACED TO [facility] CALL FOR POSSIBLE TRANSFER
--- NOTE | 2024-10-08 15:35 | NUR ---
10/08/24 1535 Magali Maradiaga 1515- PT PRESENTS TO PACU, SEMI RICHARD POSITION, OPA IN PLACE BREATHING EVEN AND NON LABORED. PT HAS 6L O2 PER MASK, LR HANGING TO LFA IV. ABD ROUND, 5 LAP SITES, DRAIN TO LATERAL SIDE. ALL MONITORS IN PLACE.
[2024-10-08 16:17] VITALS: BP 113/62
[2024-10-08] MEDS ORDERED: HYDROCODON-ACE1 EA10 PO (16:36)
--- NOTE | 2024-10-08 16:36 | NUR ---
pt to floor with jayjay rueda. pt drowsy but arousable and speaking. pt hr irregular at 119. pain minimal att. packing bag for him to take with him. pt again informed he is going to [place].
--- NOTE | 2024-10-08 16:50 | NUR ---
INSTRUCTIONS GIVEN TO REGARDING FOLLOW UP APPOINTMENT AND EMPTYING LIO DRAIN 3X A DAY AFTER DISCHARGE FROM [facility].
--- NOTE | 2024-10-08 17:34 | NUR ---
PT SENT WITH PEND FIRE TO [facility]. PT DECLINED PAIN MEDS BEFORE LEAVING, RATING A 3\10. BELONGINGS INCLUDING CPAP AND GLASSES SENT IN SUITCASE WITH AMB. IN ROOM. TRIED TO CALL REPORT, RN ON BREAK AND SHE WILL CALL BACK. VS STABLE. DRAIN EMPTIED. INSTRUCTED EMS ON DRAIN.
== END 2024-10-08 17:25 | disposition short-term general hospital (02) | DRG 419 ==
LOC: ED 08:26 → MS 14:23
PROVIDERS: Emergency Medicine; ADMIT Surgery; ATTEND Surgery
PROC: 0FT44ZZ Resection of Gallbladder, Percutaneous Endoscopic Approach (ICD-10-PCS; principal; 2024-10-04)
PROC: BF131ZZ Fluoroscopy of Gallbladder and Bile Ducts using Low Osmolar Contrast (ICD-10-PCS; 2024-10-04)
PROC: 3E03329 Introduction of Other Anti-infective into Peripheral Vein, Percutaneous Approach (ICD-10-PCS; 2024-10-04)
DX: K80.12 Calculus of gallbladder with acute and chronic cholecystitis without obstruction (principal); I48.91 Unspecified atrial fibrillation; I10 Essential (primary) hypertension; G47.33 Obstructive sleep apnea (adult) (pediatric); M54.9 Dorsalgia, unspecified; G89.29 Other chronic pain; Z96.651 Presence of right artificial knee joint; E66.01 Morbid (severe) obesity due to excess calories; Z98.890 Other specified postprocedural states; Z88.8 Allergy status to other drugs, medicaments and biological substances; Z79.01 Long term (current) use of anticoagulants; Z79.899 Other long term (current) drug therapy
CPT/HCPCS: 36415; 71045; 74177; 76705; 80048; 80053; 80076; 81001; 82803; 83605; 83690; 83735; 84100; 84484; 85025; 85060; 85610; 93005; 93010; 94660; 94760; 94762; 94799; A9270; J0131; J0696; J1100; J1171; J1610; J2003; J2270; J2405; J2470; J2704; J3010; J3475; J3490; J7060; J7121; Q9967

== ENCOUNTER 2025-01-10 01:00 | Emergency (ER) | payer MEDICARE, OTHER ==
[~2025-01-10] VITALS: Ht 180.3 cm; Wt 114.0 kg
[2025-01-10 01:23] LABS: BASOPHILS 0.4 % (0.2-1.2); EOSINOPHILS 2.8 % (0.8-7.0); LYMPHOCYTES 47.3 % (21.8-53.1); MCH 30.2 PG (25.7-32.2); MCHC 33.7 g/dL (32.3-36.5); MCV 89.6 fL (79.0-92.2); MONOCYTES 10.2 % (5.3-12.2); NEUTROPHILS 38.9 % (34.0-67.9); RBC 4.90 M/uL (4.63-6.08)
[2025-01-10 01:31] LABS: INR 1.77 (0.80-1.30); PROTIME 19.6 Sec (11.2-14.2)
[2025-01-10 01:38] LABS: ALT (SGPT) 32.0 U/L (14-59); AST (SGOT) 31.0 U/L (15-37); GLOMERULAR FILTRATION RATE,EST 82.0 mL/min (>60); PROTEIN, TOTAL 7.2 g/dL (6.4-8.2); UREA NITROGEN 21.0 mg/dL (7-18)
[2025-01-10] MEDS ORDERED: LACTATED RINGER'S 1,000 ML IV ONE (01:45)
[2025-01-10 02:59] LABS: BLOOD/HGB, URINE NEGATIVE (Negative); KETONE, URINE NEGATIVE (Negative); LEUK ESTERASE, URINE NEGATIVE (negative); NITRITE, URINE NEGATIVE (negative)
[2025-01-10 04:39] VITALS: BP 127/79
--- NOTE | 2025-01-11 06:00 | EKG ---
[facility] [address] [place], [place] [address] Signed Atrial fibrillation with rapid ventricular response with occasional ventricular-paced complexes Nonspecific T wave abnormality Abnormal ECG When compared with ECG of 04-OCT-2024 08:48, Electronic ventricular pacemaker has replaced Atrial fibrillation Confirmed by BELTRAN MIRZA MD ([id number]) on 01/11/2025 6:00:25 AM Electronically Signed By: BELTRAN MIRZA 01/11/25 0600 PATIENT NAME: CASE COBOS Electrocardiogram DATE OF : 41 PHYSICIAN: BELTRAN MIRZA REPORT #: [id number] REPORT IS CONFIDENTIAL AND NOT TO BE RELEASED WITHOUT AUTHORIZATION
== END 2025-01-10 04:40 | disposition home or self-care (01) ==
LOC: ED 01:00
PROVIDERS: Internal Medicine
DX: E86.0 Dehydration (principal); R53.1 Weakness; I48.91 Unspecified atrial fibrillation; I10 Essential (primary) hypertension; Z88.8 Allergy status to other drugs, medicaments and biological substances; Z79.899 Other long term (current) drug therapy
CPT/HCPCS: 36415; 70450; 70496; 70498; 71045; 80053; 81003; 83880; 84484; 85025; 85610; 93005; 93010; 96360; 99284-25; J7121; Q9967